=== PATIENT | female | born 1955 | race Caucasian/White ===

== ENCOUNTER → 2018-05-20 | Day surgery (SDC) | payer OTHER ==
[~2018-05-20] VITALS: Ht 172.7 cm; Wt 104.3 kg
[~2018-05-20] MED LIST: ATORVASTATIN CA20 MG PO; BYSTOLIC10 MG PO; LEVOTHYROXINE100 MC1 IV; LEVOTHYROXINE50 MCG PO; LEXAPRO10 MG PO; LIDOCAINE 1% W/EPINEPHRINE 20 ML VIAL ONE; XARELTO20 MG PO
[2018-05-20 10:54] VITALS: BP 135/76
--- NOTE | 2018-05-20 14:15 | NUR ---
Vitals stable. Discharge instructions given. Patient verbalized understanding. Patient discharged home.
--- NOTE | 2018-05-21 12:45 | Operative Report ---
DATE OF PROCEDURE: May 20, 2018 INDICATIONS: Atrial fibrillation. PROCEDURE PERFORMED: Insertable loop recorder. COMPLICATIONS: None. RECOMMENDATIONS: Remote monitoring. Left anterior chest wall was anesthetized using subcutaneous lidocaine. A [employer] LINQ, serial number [id number] was inserted subcutaneously without complications. Skin approximated using Dermabond. Patient discharged home same day. Job#: [id number]
== END | disposition home or self-care (01) ==
LOC: CATH LAB 10:41
PROVIDERS: ATTEND Internal Medicine Interventional Cardiology
DX: I48.0 Paroxysmal atrial fibrillation (principal); Z79.02 Long term (current) use of antithrombotics/antiplatelets; Z68.35 Body mass index [BMI] 35.0-35.9, adult
CPT/HCPCS: 33282; C1764